=== PATIENT | male | born 2000 | race Caucasian/White ===

== ENCOUNTER 2020-02-24 10:50 | Day surgery (SDC) | payer BC ==
[~2020-02-24] VITALS: Ht 185.4 cm; Wt 88.5 kg
--- NOTE | ~2020-02-24 | O ---
[facility] [place] [address] OPERATIVE REPORT Name: SANDRA MCCRAY Room #: DEP [facility].#: [id number] Admission: 02/24/20 Attend Phys: Jimbo Covarrubias MD Discharge: 02/25/20 Date of : 00 Report #: [id number] THIS REPORT FOR: cc: CAROLYN - Family physician unknown FAM - Family physician unknown Jimbo Covarrubias MD ~ CC: CAROLYN Covarrubias DATE OF SERVICE: 02/24/2020 PREOPERATIVE DIAGNOSIS: Cholecystitis, acalculous. POSTOPERATIVE DIAGNOSIS: Cholecystitis with cholesterolosis. Inflammatory adhesion found around the proximal gallbladder. PROCEDURES PERFORMED: Laparoscopic cholecystectomy with cholangiogram. ANESTHESIA: General anesthesia. SURGEON: Jimbo Covarrubias MD COMPLICATIONS: None. ESTIMATED BLOOD LOSS: 5 mL. PROCEDURE PERFORMED: Laparoscopic cholecystectomy, attempted intraoperative cholangiogram. FINDINGS: The cystic duct was very narrow and was not able to cannulate successfully for the cholangiogram. PROCEDURE NOTE: With the patient under general anesthesia, abdomen was prepped and draped in sterile fashion. IV antibiotic was administered preoperatively. Timeout was performed. A 0.25% Marcaine was used to anesthetize the skin. Underneath the umbilicus, 2 cm incision was made. After dissecting through the skin and subcutaneous tissue, the fascia was identified. The fascia was then opened under visualization, 0 Vicryl were placed on the fascia edges. Veress needle was then placed through the peritoneum. Abdominal cavity was insufflated with CO2. Pneumoperitoneum was established without difficulty. An 11 mm trocar was placed into the pneumoperitoneum under visualization. No harm to underlying tissue. Laparoscopic evaluation showed a moderate gaseous distention of the distal colon. Small bowel was normal. A 5 mm trocar was placed in the epigastrium. The patient had an irregularity in the spleen on ultrasound. I was able to see most of the spleen surface and it appears to be normal. The patient was placed in a reverse Trendelenburg position. A 10 mm 0-degree scope [address] [address] OPERATIVE REPORT Name: SANDRA MCCRAY Room #: DEP [facility].#: [id number] Admission: 02/24/20 Attend Phys: Jimbo Covarrubias MD Discharge: 02/25/20 Date of : 00 Report #: [id number] was changed to a 10 mm 30-degree scope. This allowed the better visualization of the spleen. Obviously, I cannot see the entire surface of the spleen without putting additional trocar, but the medial edge, inferior tip lateral surface all appeared normal. Attention was then placed for the gallbladder surgery. Two 5 mm trocars were placed right upper quadrant. Gallbladder was lifted over the liver. Gallbladder was noted to be elongated. The proximal part of the gallbladder did have significant dense adhesions around it. These adhesions were taken down. The proximal gallbladder was then isolated. Peritoneum was dissected free. The cystic duct was then isolated. The cystic artery was also visualized. The cystic duct was noted to be pretty small sized. I did make an opening for the cholangiogram and despite multiple attempts I could not get the catheter to go into the cystic duct. I also tried cutting the tip of the cholangiogram catheter and still was not able to thread it in. The cholangiogram was then abandoned. The proximal cystic duct was then clipped x 2 and then divided. The cystic artery was then isolated, clipped x 2 proximally and 1 distally and then divided. The gallbladder was free from the liver bed. Gallbladder was then retrieved through the infraumbilical port. The gallbladder was opened off the field. There is a yellowish, velvety appearance to the mucosa consistent with cholesterolosis. The bile did have a moderate sludgy appearance. Liver bed was checked, hemostasis obtained. Clips were intact. Irrigation was aspirated out. Trocars were removed. CO2 was evacuated as much as possible. Fascia defect infraumbilically was closed with [id number] 0 Vicryl x 2. Skin was irrigated, closed with 5-0 PDS. Mastisol, Steri-Strip, and Band-Aids applied. The patient tolerated the procedure well. By: [id number] Jimbo Covarrubias MD /jose
[2020-02-24 11:44] VITALS: BP 127/66
[2020-02-24 16:34] VITALS: BP 89/49
[2020-02-24 21:10] VITALS: BP 130/66
[2020-02-24 22:00] VITALS: BP 142/78
[2020-02-25 00:15] VITALS: BP 114/56
--- NOTE | 2020-02-25 02:08 | NUR ---
REPORT RECIEVED FROM DAY NURSE. ASSUMED CARE OF PT @1900 PT ASSESSED AT START OF SHIFT A&OX4 LAP DARIO 4 SITES INTACT. C/O PAIN. PAIN MEDICINE ADMINISTERED SEE EMAR. PT ON OBSERVATION AND ARRIVED @1600 FROM POST OP. UP AD LAM TO THE BATHROOM. EARLY AMBULATION ENCOURAGED. IV INTACT AND FLUIDS INFUISING. WES DIET WELL. FALL PREC IN PLACE AND CALL LIGHT IN REACH WILL CONT WITH POC TILL EOS.
[2020-02-25 04:00] VITALS: BP 95/46
[2020-02-25 07:25] VITALS: BP 123/68
[2020-02-25] MEDS ORDERED: PERCOCET PO (09:46)
--- NOTE | 2020-02-25 12:29 | NUR ---
VSS-AFEBRILE. C/O SIGNIFICANT ABDOMINAL AND RIGHT SHOULDER DISCOMFORT. PARTIAL RELIEF NOTED WITH IV PAIN MEDICATIONS. DISCUSSED TRAPPED AIR PAIN POST LAPAROSCOPIC PROCEDURES, VERBALIZED UNDERSTANDING OF INFORMATION. ALSO DISCUSSED DC INSTRUCTIONS WELL INCISION CARE POST DISCHARGE. UNDERSTANDING OF ALL MATERIALS EXPRESSED. LEFT UNIT IN WHEELCHAIR AND WITH ALL PERSONAL BELONGINGS. STAFF ACCOMPANIED PATIENT TO PRIVATE VEHICLE, MOTHER TO TAKE PATIENT HOME.
--- NOTE | 2020-02-29 13:08 | PATH ---
[facility] [address] [place] [address] PATHOLOGY RPT PROCEDURE Name: SUNIL MSAON Room #: DEP [facility] M.R.#: [id number] Admission: 02/24/20 Date of : 00 Discharge: 02/25/20 Report #: [id number] Path Case #: [id number] [facility] Accession Number: [id number] . 01 Material submitted: . gallbladder - GALLBLADDER . 01 Clinical history: . Cholecystitis . 02 Diagnosis: Gallbladder, cholecystectomy: - Mild chronic cholecystitis. - Cauterized minute reactive lymph node. (IUV:anel; 02/26/2020) QMS 02/29/2020 1209 Local . 02 Electronically signed: . Karina Rodriguez MD, Pathologist NPI- [id number] . 01 Gross description: . The specimen is received in formalin, labeled "Sunil Mason, gallbladder" and consists of a previously opened green gallbladder measuring 7.6 x 4.3 x 0.8 cm. The margin is inked. The container contains green bile and no stones are present. The mucosa is green and granular with a wall thickness of 0.1 cm. A possible lymph node is present and no gross lesions are identified. Tetryl Dissolver Operator sections are submitted in A1. ([facility]; 02/25/2020) . After initial microscopic examination additional technical service representative sections are submitted in A2. ([facility]; 02/26/2020) JFQ/GERI 02/26/2020 1412 Local . 02 Pathologist provided ICD-10: K81.1 . 02 CPT . 040596 Specimen Comment: A courtesy copy of this report has been sent to [phone] Specimen Comment: Report sent to Performed at: 01 [facility] [address] [facility] [address], [place] [id number] MD David Pardo MD Phone: [phone] [address] [place] [address] PATHOLOGY RPT PROCEDURE Name: SUNIL MASON Room #: DEP [facility].#: [id number] Admission: 02/24/20 Date of : 00 Discharge: 02/25/20 Report #: [id number] Path Case #: [id number] Performed at: [address] [id number] MD Karina Rodriguez MD Phone: [phone]
== END 2020-02-25 12:35 | disposition home or self-care (01) ==
LOC: OR 10:50 → TBA 10:54 → OBSERV 11:58 → EDSTATUS 15:23 → 4S 16:39 → OR 02-25 12:35
DX: K81.1 Chronic cholecystitis (principal); K66.0 Peritoneal adhesions (postprocedural) (postinfection); Z98.890 Other specified postprocedural states; Z79.899 Other long term (current) drug therapy; Z87.891 Personal history of nicotine dependence
CPT/HCPCS: 10102; 50010; 50101; 50249; 50411; 50555; 50558; 51489; 52265; 53307; 53310; 55245; 55317; 56462; 56525; 56526; 62110; 62900; 70005